=== PATIENT | female | born 1970 | race Caucasian/White ===

== ENCOUNTER → 2020-01-30 13:25 | Outpatient (BNVA) | payer BC, SELFPAY | PROVIDERS: Visit Provider Orthopaedic Surgery | DX: M25.561 Pain in right knee (principal) | CPT/HCPCS: 73560; 73565 ==

== ENCOUNTER 2020-04-04 17:32 | Emergency (ER) | payer BC, SELFPAY ==
[2020-04-04] VITALS (7 sets, daily range): BP systolic 95–140; BP diastolic 69–100; PULSE 86–113; RESP 16–18; TEMP 36.7; O2SAT 96–99; BMI 32.1
--- NOTE | 2020-04-04 19:53 | W.ED.ABDPA2 ---
Documented by User: PEPE Escoto 04/05/20 03:02 HPI - Abdominal Pain General: Chief Complaint: Abdominal Pain Stated Complaint: LUQ PAIN, HX OF PANCREATITIS Time Seen by Provider: 04/04/20 19:48 History of Present Illness: HPI narrative: Patient is a 49-year-old female comes to the ED with abdominal pain and nausea. Symptoms started last night. Past medical history of pancreatitis. Patient says that she has not been eating too healthy for the past week and thinks that started her symptoms. She rates the abdominal pain a 7 out of 10 currently and its located in the periumbilical region of the abdomen and it radiates to her back. Denies fever, chills, chest pain, shortness of breath, emesis, diarrhea, constipation, dysuria or hematuria. Associated Symptoms: Reports nausea; Denies chills, constipation, diarrhea, dysuria, fever(s), hematochezia, hematuria and vomiting Related Data: Date of Last Menstrual Period: 04/04/20 Review of Systems Const: Denies: fever(s), chills or fatigue Eyes: Denies: change in vision or eye discomfort ENMT: Denies: throat pain, odynophagia, nasal discharge or nasal congestion Card: Denies: chest pain, palpitations, edema, swelling of feet/ankles, dyspnea on exertion or orthopnea Resp: Denies: dyspnea, productive cough or non-productive cough GI: Reports: abdominal pain and nausea; Denies: vomiting, diarrhea, constipation or hematochezia : Denies: flank pain, dysuria or hematuria Musc: Denies: neck pain, back pain or extremity swelling Skin/Breast: Denies: rash or new lesions Neuro: Denies: headache(s), numbness in extremities or weakness in extremities PFS ED PFSH: Social History Smoking and tobacco status: never smoked Alcohol intake: never Female Reproductive History: Date of last menstrual period: 04/04/20 Physical Exam Const: COMMON NORMALS: no acute distress, patient oriented x3 and alert GENERAL APPEARANCE: cooperative and comfortable HENMT: COMMON NORMALS: normocephalic HEAD & SCALP: normocephalic MOUTH: Normal oral and palatal mucosa present THROAT: posterior oropharynx normal and uvula midline Eye: COMMON NORMALS: Equal, round and reactive pupils present PUPIL: Yes Equal, round and reactive pupils present Neck/C-Spine: COMMON NORMALS: supple GENERAL: Yes normal visual inspection Resp: COMMON NORMALS: normal respiratory effort, No retractions, No use of accessory muscles and clear to auscultation bilaterally AUSCULTATION: clear to auscultation bilaterally Cardio: COMMON NORMALS: regular rate, regular rhythm, S1 normal heart sound present, S2 normal heart sound present, No gallops present (Cardio), No clicks present (Cardio), No murmurs present (Cardio) and Peripheral pulses 2+ throughout RATE: regular rate RHYTHM: regular rhythm HEART SOUNDS: S1 normal heart sound present and S2 normal heart sound present PERIPHERAL PULSES: Peripheral pulses 2+ throughout GI: COMMON NORMALS: Normal to inspection, nondistended, normoactive bowel sounds present, Soft to palpation and no masses PALPATION: Yes Soft to palpation and Yes Tenderness to palpation present (GI) Details: other (Superior region periumbilical tenderness) : COMMON NORMALS: Yes no CVA tenderness BLADDER/KIDNEY EXAM: Yes no CVA tenderness Back/Pelvis: COMMON NORMALS: no CVA tenderness Extremity: COMMON NORMALS: normal to inspection Neuro: COMMON NORMALS: patient oriented x3 SENSORIUM/ORIENTATION: Yes alert GAIT: Yes Normal gait present Skin: GENERAL SKIN EXAM: dry skin Course Reevaluation(s): Reevaluation #1: Patient was given IV fluids, morphine and Zofran and her symptoms greatly improved. Her pain and nausea is now well managed. Patient would like to be discharged home. Vital Signs: Vital signs: Vital Signs Temperature 98.0 F 04/04/20 17:46 Pulse Rate 86 04/04/20 22:38 Respiratory Rate 17 04/04/20 22:38 Blood Pressure 121/77 04/04/20 22:38 Pulse Oximetry 97 04/04/20 22:38 MDM - Abdominal Pain MDM Narrative: Medical decision making narrative: Patient is a 49-year-old female comes to the ED with abdominal pain and nausea. Patient has a past medical history of pancreatitis. Abdominal pain is in the periumbilical region and then radiates to the back. CBC and CMP were unremarkable. Lipase 180. CT of the abdomen shows acute pancreatitis. Patient was given IV fluids, morphine and Zofran and her symptoms were well controlled. Patient was diagnosed with pancreatitis and was discharged with prescription for [place] for pain and Zofran for the nausea. She was instructed on having a clear liquid diet only for the next 48+ hours then to increase as tolerated. Follow-up with PCP in the next 7 to 10 days for reevaluation. Return to ED precautions given. Patient understood and agreed with plan. Lab Data: Attestation: I reviewed the patient's lab results. Labs: Lab Results 04/04/20 04/04/20 04/04/20 Range/Units 20:20 20:20 20:20 WBC 9.6 (4.0-10.0) 10^3/ uL RBC 4.32 (4.1-5.3) 10^6/u L Hgb 14.3 (11.5-15.3) g/dL Hct 43.0 (37.0-47.0) % MCV 99.5 H (81-99) fL MCH 33.1 (28.0-34.0) pg MCHC 33.3 (30.0-36.0) g/dL RDW 13.5 (12.1-15.1) % Plt Count 269 (130-400) 10^3/c mm MPV 10.6 H (7.4-10.4) fL Neut % (Auto) 83.4 % Lymph % (Auto) 10.7 % [place] % (Auto) 4.4 % Eos % (Auto) 0.5 % Baso % (Auto) 0.6 % Neut # (Auto) 8.02 H (1.8-7.7) 10^3/u L Lymph # (Auto) 1.0 (0.8-4.8) 10^3/u L [place] # (Auto) 0.4 (0.2-0.9) 10^3/u L Eos # (Auto) 0.1 (0.0-0.8) 10^3/u L Baso # (Auto) 0.1 (0.0-0.1) 10^3/u L Nucleated RBC % (a uto) 0 % Nucleated RBCs # 0.0 /100WBC Sodium 134 L (136-145) mmol/L Potassium 3.9 (3.5-5.1) mmol/L Chloride 104 (98-107) mmol/L Carbon Dioxide 13 L (22-29) mmol/L Anion Gap 20.9 H (5-19) BUN 14 (6-20) mg/dL Creatinine 0.9 (0.5-0.9) mg/dL GFR Calculation 66.8 L (90-130) mL/min Glucose 135 H (65-115) mg/dL Calculated Osmolal ity 281 L (285-295) mOsm/k g Calcium 9.1 (8.5-10.5) mg/dL Total Bilirubin 0.3 (0.15-1.2) mg/dL AST 54 H (0-32) U/L ALT 25 (0-33) U/L Alkaline Phosphata se 100 (35-105) IU/L Total Protein 8.6 (6.6-8.7) g/dL Albumin 4.2 (3.5-5.2) g/dL Globulin 4.4 (1.3-4.6) g/dL Lipase 186 H (13-60) U/L HCG, Qual Negative (Negative) Urine Color (Yellow) Urine Appearance (CLEAR) Urine pH (5-7) Ur Specific Gravit y (1.005-1.030) Urine Protein (Negative) Urine Glucose (UA) (Normal) Urine Ketones (Negative) Urine Blood (Negative) Urine Nitrate (Negative) Urine Bilirubin (Negative) Urine Urobilinogen (Negative) mg/dL Ur Leukocyte Akila ase (Negative) Urine RBC (0-2) /hpf Urine WBC (0-5) /hpf Ur Squamous Epith Cells (0-5) /hpf Amorphous Sediment Urine Bacteria (NONE) /hpf 04/04/20 Range/Units 21:35 WBC (4.0-10.0) 10^3/ uL RBC (4.1-5.3) 10^6/u L Hgb (11.5-15.3) g/dL Hct (37.0-47.0) % MCV (81-99) fL MCH (28.0-34.0) pg MCHC (30.0-36.0) g/dL RDW (12.1-15.1) % Plt Count (130-400) 10^3/c mm MPV (7.4-10.4) fL Neut % (Auto) % Lymph % (Auto) % [place] % (Auto) % Eos % (Auto) % Baso % (Auto) % Neut # (Auto) (1.8-7.7) 10^3/u L Lymph # (Auto) (0.8-4.8) 10^3/u L [place] # (Auto) (0.2-0.9) 10^3/u L Eos # (Auto) (0.0-0.8) 10^3/u L Baso # (Auto) (0.0-0.1) 10^3/u L Nucleated RBC % (a uto) % Nucleated RBCs # /100WBC Sodium (136-145) mmol/L Potassium (3.5-5.1) mmol/L Chloride (98-107) mmol/L Carbon Dioxide (22-29) mmol/L Anion Gap (5-19) BUN (6-20) mg/dL Creatinine (0.5-0.9) mg/dL GFR Calculation (90-130) mL/min Glucose (65-115) mg/dL Calculated Osmolal ity (285-295) mOsm/k g Calcium (8.5-10.5) mg/dL Total Bilirubin (0.15-1.2) mg/dL AST (0-32) U/L ALT (0-33) U/L Alkaline Phosphata se (35-105) IU/L Total Protein (6.6-8.7) g/dL Albumin (3.5-5.2) g/dL Globulin (1.3-4.6) g/dL Lipase (13-60) U/L HCG, Qual (Negative) Urine Color Yellow (Yellow) Urine Appearance Clear (CLEAR) Urine pH 7 (5-7) Ur Specific Gravit y 1.000 L (1.005-1.030) Urine Protein 1+ H (Negative) Urine Glucose (UA) Norm (Normal) Urine Ketones Negative (Negative) Urine Blood 2+ H (Negative) Urine Nitrate Negative (Negative) Urine Bilirubin Neg (Negative) Urine Urobilinogen Norm (Negative) mg/dL Ur Leukocyte Akila ase Negative (Negative) Urine RBC 0-4 H (0-2) /hpf Urine WBC 5-10 H (0-5) /hpf Ur Squamous Epith Cells 10-15 H (0-5) /hpf Amorphous Sediment Not Reportable Urine Bacteria Trace (NONE) /hpf Imaging Data ^: CT Abd/Pel: Attestation: I personally reviewed and interpreted this imaging study as follows: Radiologist's impression: [address] [place] [address] CT Scan Report Signed Patient: Pham Casey Unit #: [id number] : 1970 Age/Sex: 49 / F ADM Date: 04/04/20 Loc: ER Room/Bed: Attending Dr: Ordering Provider/Ordering MD: Krystian Valencia Date of Service: 04/04/20 Procedure(s): CT abdomen pelvis w con* [id number] Accession Number(s): [id number] Report Number: [id number] PROCEDURE INFORMATION: Exam: CT Abdomen And Pelvis With Contrast Exam date and time: 04/04/2020 8:10 PM Age: 49 years old Clinical indication: Abdominal pain; Prior surgery; Surgery type: Gb; Patient HX: Epigastric pain. History of pancreatitis. TECHNIQUE: Imaging protocol: Computed tomography of the abdomen and pelvis with contrast. Radiation optimization: All CT scans at this facility use at least one of these dose optimization techniques: automated exposure control; mA and/or kV adjustment per patient size (includes targeted exams where dose is matched to clinical indication); or iterative reconstruction. Contrast material: OMNI 300; Contrast volume: 95 ml; Contrast route: INTRAVENOUS (IV); COMPARISON: CT abdomen pelvis w con* [id number] 11/19/2017 10:57 PM RADIATION DOSE METRICS: Total DLP (mGy-cm): 1075.93 FINDINGS: Liver: Normal. No mass. Gallbladder and bile ducts: Cholecystectomy. No ductal dilation. Pancreas: Fat stranding around the pancreatic tail. Small focal area of mildly decreased enhancement in the pancreatic tail parenchyma. No loculated peripancreatic fluid collection. No pancreatic ductal dilation. Spleen: Normal. No splenomegaly. Adrenal glands: Normal. No mass. Kidneys and ureters: Normal. No hydronephrosis. Stomach and bowel: The scattered diverticulosis coli. No focal bowel wall inflammation. No evidence of bowel obstruction or perforation. Appendix: No evidence of appendicitis. Intraperitoneal space: Unremarkable. No free air. No significant fluid collection. Vasculature: Unremarkable. No abdominal aortic aneurysm. Lymph nodes: Unremarkable. No enlarged lymph nodes. Urinary bladder: Unremarkable as visualized. Reproductive: Unremarkable as visualized. Bones/joints: Unremarkable. No acute fracture. Soft tissues: Unremarkable. CT/CT abdomen pelvis w con* [id number] IMPRESSION: Acute pancreatitis. Radiation Dose CTDIVOL = (mGy): DLP = 1075.93 (mGy-cm) Dictated By: Fernando Roberts Signed By: Fernando Roberts Signed Date/Time: 04/04/202050 DD/ 48 Discharge Plan Discharge Patient Disposition: Home Clinical Impression: Acute pancreatitis Qualifiers: Pancreatitis type: unspecified pancreatitis type Acute pancreatitis complication: no infection or necrosis Qualified Code(s): K85.90 - Acute pancreatitis without necrosis or infection, unspecified Condition: Stable Prescriptions: New ondansetron 4 mg tablet,disintegrating 4 mg PO Q8H Qty: 30 RF: 0 No Action hydroxyzine HCl 25 mg tablet 25 mg PO QID PRNRF: 0 gemfibrozil 600 mg tablet 600 mg PO BID RF: 0 amlodipine 10 mg tablet 10 mg PO DAILY RF: 0 allopurinol 100 mg tablet 100 mg PO DAILY RF: 0 levothyroxine 50 mcg capsule 50 mcg PO DAILY RF: 0 diclofenac sodium 75 mg tablet,delayed release (DR/EC) 75 mg PO BID PRNRF: 0 Discharge Orders: Discharge ED (Routine); Ordered 04/04/20 Ordered By: Krystian Valencia Discharge Diet: Advance as tolerated and Clear Liquid Discharge Activity: Increase activity as tolerated Patient Instructions: Pancreatitis (ED), Opioid Safety Activity Restrictions/Additional Instructions: Follow-up with medical provider as directed in 7 to 10 days for reevaluation. Only clear liquid diet for the next 48+ hours and then slowly advance diet as tolerated. Take medications as prescribed. Return to the ER or your medical provider if condition worsens. Please read and understand discharge instructions. If any questions, please ask. Coding Level of Care Code ED Promotions Producer for Chg Fwd Exam Comprehensive Documented by User: Rolando Jasso DO 04/05/20 03:53 HPI - Abdominal Pain General: Chief Complaint: Abdominal Pain Stated Complaint: LUQ PAIN, HX OF PANCREATITIS Time Seen by Provider: 04/04/20 19:48 PFSH ED PFSH: Social History Smoking and tobacco status: never smoked Alcohol intake: never Course Vital Signs: Vital signs: Vital Signs Temperature 98.0 F 04/04/20 17:46 Pulse Rate 86 04/04/20 22:38 Respiratory Rate 17 04/04/20 22:38 Blood Pressure 121/77 04/04/20 22:38 Pulse Oximetry 97 04/04/20 22:38 MDM - Abdominal Pain Lab Data: Labs: Lab Results 04/04/20 04/04/20 04/04/20 Range/Units 20:20 20:20 20:20 WBC 9.6 (4.0-10.0) 10^3/ uL RBC 4.32 (4.1-5.3) 10^6/u L Hgb 14.3 (11.5-15.3) g/dL Hct 43.0 (37.0-47.0) % MCV 99.5 H (81-99) fL MCH 33.1 (28.0-34.0) pg MCHC 33.3 (30.0-36.0) g/dL RDW 13.5 (12.1-15.1) % Plt Count 269 (130-400) 10^3/c mm MPV 10.6 H (7.4-10.4) fL Neut % (Auto) 83.4 % Lymph % (Auto) 10.7 % [place] % (Auto) 4.4 % Eos % (Auto) 0.5 % Baso % (Auto) 0.6 % Neut # (Auto) 8.02 H (1.8-7.7) 10^3/u L Lymph # (Auto) 1.0 (0.8-4.8) 10^3/u L [place] # (Auto) 0.4 (0.2-0.9) 10^3/u L Eos # (Auto) 0.1 (0.0-0.8) 10^3/u L Baso # (Auto) 0.1 (0.0-0.1) 10^3/u L Nucleated RBC % (a uto) 0 % Nucleated RBCs # 0.0 /100WBC Sodium 134 L (136-145) mmol/L Potassium 3.9 (3.5-5.1) mmol/L Chloride 104 (98-107) mmol/L Carbon Dioxide 13 L (22-29) mmol/L Anion Gap 20.9 H (5-19) BUN 14 (6-20) mg/dL Creatinine 0.9 (0.5-0.9) mg/dL GFR Calculation 66.8 L (90-130) mL/min Glucose 135 H (65-115) mg/dL Calculated Osmolal ity 281 L (285-295) mOsm/k g Calcium 9.1 (8.5-10.5) mg/dL Total Bilirubin 0.3 (0.15-1.2) mg/dL AST 54 H (0-32) U/L ALT 25 (0-33) U/L Alkaline Phosphata se 100 (35-105) IU/L Total Protein 8.6 (6.6-8.7) g/dL Albumin 4.2 (3.5-5.2) g/dL Globulin 4.4 (1.3-4.6) g/dL Lipase 186 H (13-60) U/L HCG, Qual Negative (Negative) Urine Color (Yellow) Urine Appearance (CLEAR) Urine pH (5-7) Ur Specific Gravit y (1.005-1.030) Urine Protein (Negative) Urine Glucose (UA) (Normal) Urine Ketones (Negative) Urine Blood (Negative) Urine Nitrate (Negative) Urine Bilirubin (Negative) Urine Urobilinogen (Negative) mg/dL Ur Leukocyte Akila ase (Negative) Urine RBC (0-2) /hpf Urine WBC (0-5) /hpf Ur Squamous Epith Cells (0-5) /hpf Amorphous Sediment Urine Bacteria (NONE) /hpf 04/04/20 Range/Units 21:35 WBC (4.0-10.0) 10^3/ uL RBC (4.1-5.3) 10^6/u L Hgb (11.5-15.3) g/dL Hct (37.0-47.0) % MCV (81-99) fL MCH (28.0-34.0) pg MCHC (30.0-36.0) g/dL RDW (12.1-15.1) % Plt Count (130-400) 10^3/c mm MPV (7.4-10.4) fL Neut % (Auto) % Lymph % (Auto) % [place] % (Auto) % Eos % (Auto) % Baso % (Auto) % Neut # (Auto) (1.8-7.7) 10^3/u L Lymph # (Auto) (0.8-4.8) 10^3/u L [place] # (Auto) (0.2-0.9) 10^3/u L Eos # (Auto) (0.0-0.8) 10^3/u L Baso # (Auto) (0.0-0.1) 10^3/u L Nucleated RBC % (a uto) % Nucleated RBCs # /100WBC Sodium (136-145) mmol/L Potassium (3.5-5.1) mmol/L Chloride (98-107) mmol/L Carbon Dioxide (22-29) mmol/L Anion Gap (5-19) BUN (6-20) mg/dL Creatinine (0.5-0.9) mg/dL GFR Calculation (90-130) mL/min Glucose (65-115) mg/dL Calculated Osmolal ity (285-295) mOsm/k g Calcium (8.5-10.5) mg/dL Total Bilirubin (0.15-1.2) mg/dL AST (0-32) U/L ALT (0-33) U/L Alkaline Phosphata se (35-105) IU/L Total Protein (6.6-8.7) g/dL Albumin (3.5-5.2) g/dL Globulin (1.3-4.6) g/dL Lipase (13-60) U/L HCG, Qual (Negative) Urine Color Yellow (Yellow) Urine Appearance Clear (CLEAR) Urine pH 7 (5-7) Ur Specific Gravit y 1.000 L (1.005-1.030) Urine Protein 1+ H (Negative) Urine Glucose (UA) Norm (Normal) Urine Ketones Negative (Negative) Urine Blood 2+ H (Negative) Urine Nitrate Negative (Negative) Urine Bilirubin Neg (Negative) Urine Urobilinogen Norm (Negative) mg/dL Ur Leukocyte Akila ase Negative (Negative) Urine RBC 0-4 H (0-2) /hpf Urine WBC 5-10 H (0-5) /hpf Ur Squamous Epith Cells 10-15 H (0-5) /hpf Amorphous Sediment Not Reportable Urine Bacteria Trace (NONE) /hpf Discharge Plan Discharge Patient Disposition: Home Clinical Impression: Acute pancreatitis Qualifiers: Pancreatitis type: unspecified pancreatitis type Acute pancreatitis complication: no infection or necrosis Qualified Code(s): K85.90 - Acute pancreatitis without necrosis or infection, unspecified Condition: Stable Prescriptions: New ondansetron 4 mg tablet,disintegrating 4 mg PO Q8H Qty: 30 RF: 0 No Action hydroxyzine HCl 25 mg tablet 25 mg PO QID PRNRF: 0 gemfibrozil 600 mg tablet 600 mg PO BID RF: 0 amlodipine 10 mg tablet 10 mg PO DAILY RF: 0 allopurinol 100 mg tablet 100 mg PO DAILY RF: 0 levothyroxine 50 mcg capsule 50 mcg PO DAILY RF: 0 diclofenac sodium 75 mg tablet,delayed release (DR/EC) 75 mg PO BID PRNRF: 0 Discharge Orders: Discharge ED (Routine); Ordered 04/04/20 Ordered By: Krystian Valencia Discharge Diet: Advance as tolerated and Clear Liquid Discharge Activity: Increase activity as tolerated Patient Instructions: Pancreatitis (ED), Opioid Safety Activity Restrictions/Additional Instructions: Follow-up with medical provider as directed in 7 to 10 days for reevaluation. Only clear liquid diet for the next 48+ hours and then slowly advance diet as tolerated. Take medications as prescribed. Return to the ER or your medical provider if condition worsens. Please read and understand discharge instructions. If any questions, please ask. Coding Level of Care Code ED Promotions Producer for Dara Fwd Exam Comprehensive
--- NOTE | 2020-04-04 20:04 | CTR_ITS ---
PROCEDURE INFORMATION: Exam: CT Abdomen And Pelvis With Contrast Exam date and time: 04/04/2020 8:10 PM Age: 49 years old Clinical indication: Abdominal pain; Prior surgery; Surgery type: Gb; Patient HX: Epigastric pain. History of pancreatitis. TECHNIQUE: Imaging protocol: Computed tomography of the abdomen and pelvis with contrast. Radiation optimization: All CT scans at this facility use at least one of these dose optimization techniques: automated exposure control; mA and/or kV adjustment per patient size (includes targeted exams where dose is matched to clinical indication); or iterative reconstruction. Contrast material: OMNI 300; Contrast volume: 95 ml; Contrast route: INTRAVENOUS (IV); COMPARISON: CT abdomen pelvis w con* [id number] 11/19/2017 10:57 PM RADIATION DOSE METRICS: Total DLP (mGy-cm): 1075.93 FINDINGS: Liver: Normal. No mass. Gallbladder and bile ducts: Cholecystectomy. No ductal dilation. Pancreas: Fat stranding around the pancreatic tail. Small focal area of mildly decreased enhancement in the pancreatic tail parenchyma. No loculated peripancreatic fluid collection. No pancreatic ductal dilation. Spleen: Normal. No splenomegaly. Adrenal glands: Normal. No mass. Kidneys and ureters: Normal. No hydronephrosis. Stomach and bowel: The scattered diverticulosis coli. No focal bowel wall inflammation. No evidence of bowel obstruction or perforation. Appendix: No evidence of appendicitis. Intraperitoneal space: Unremarkable. No free air. No significant fluid collection. Vasculature: Unremarkable. No abdominal aortic aneurysm. Lymph nodes: Unremarkable. No enlarged lymph nodes. Urinary bladder: Unremarkable as visualized. Reproductive: Unremarkable as visualized. Bones/joints: Unremarkable. No acute fracture. Soft tissues: Unremarkable. CT/CT abdomen pelvis w con* [id number] IMPRESSION: Acute pancreatitis. Radiation Dose CTDIVOL = (mGy): DLP = 1075.93 (mGy-cm)
[2020-04-04] MEDS: sodium chloride 0.9% 1,000 ML 999 ML IV (20:21)
[2020-04-04] MEDS: morphine 4 mg/mL SDV 1 mL IVP ×2 (20:21→22:36)
[2020-04-04] MEDS: ondansetron 2 mg/ML SDV 2 mL 4 MG IVP (20:21)
[2020-04-04 20:28] LABS: Basophils # 0.1 10^3/uL (0.0-0.1); Basophils % 0.6 %; Eosinophils # 0.1 10^3/uL (0.0-0.8); Eosinophils % 0.5 %; Hemoglobin 14.3 g/dL (11.5-15.3); Lymphocytes % 10.7 %; Mean Corpuscular HGB Conc 33.3 g/dL (30.0-36.0); Mean Corpuscular Hemoglobin 33.1 pg (28.0-34.0); Mean Corpuscular Volume 99.5 fL (81-99); Mean Platelet Volume 10.6 fL (7.4-10.4); Monocytes # 0.4 10^3/uL (0.2-0.9); Monocytes % 4.4 %; Neutrophils # 8.02 10^3/uL (1.8-7.7); Neutrophils % 83.4 %; Nucleated Red Blood Cells % 0 %; Platelet Count 269 10^3/cmm (130-400); Red Blood Count 4.32 10^6/uL (4.1-5.3); Red Cell Distribution Width 13.5 % (12.1-15.1); White Blood Count 9.6 10^3/uL (4.0-10.0)
[2020-04-04] MEDS: iohexol 300 mg/mL 100 mL Btl IV (20:30)
[2020-04-04 20:52] LABS: Blood Urea Nitrogen 14 mg/dL (6-20); HCG, Serum Qual Negative (Negative); Total Bilirubin 0.3 mg/dL (0.15-1.2)
[2020-04-04 21:54] LABS: Bilirubin Urine Neg (Negative); Blood Urine 2+ (Negative); Glucose Urine UA Norm (Normal); Ketones Urine Negative (Negative); Leukocyte Esterase Urine Negative (Negative); Nitrate Urine Negative (Negative); Protein Urine 1+ (Negative); Urine Appearance Clear (CLEAR); Urine Color Yellow (Yellow); Urobilinogen Urine Norm (Negative); pH Urine 7 (5-7)
[2020-04-04 22:01] LABS: RBC Urine 0-4 /hpf (0-2)
[2020-04-04 22:02] LABS: Add Urine Culture? Yes; Bacteria Urine TRACE /hpf
[2020-04-04 22:28] LABS: Albumin Level 4.2 g/dL (3.5-5.2)
[2020-04-04 22:59] LABS: Alanine Aminotransferase 25 U/L (0-33); Alkaline Phosphatase 100 IU/L (35-105); Aspartate Amino Transferase 54 U/L (0-32); Calcium 9.1 mg/dL (8.5-10.5); Carbon Dioxide 13 mmol/L (22-29); Chloride 104 mmol/L (98-107); Globulin 4.4 g/dL (1.3-4.6); Glomerular Filtration Rate 66.8 mL/min (90-130); Glucose 135 mg/dL (65-115); Lipase 186 U/L (13-60); Osmolality Calculated 281 mOsm/kg (285-295); Sodium 134 mmol/L (136-145); Total Protein 8.6 g/dL (6.6-8.7)
[2020-04-04 23:05] LABS: Anion Gap 20.9 (5-19); Potassium 3.9 mmol/L (3.5-5.1)
[2020-04-04] MEDS: HYDROcodone-acetaminophen 7.5-325 mg Tablet 2 TAB PO (23:43)
[2020-04-04] MEDS: ondansetron 2 mg/ML SDV 2 mL 4 MG IM (23:52)
== END 2020-04-05 00:06 | disposition home or self-care (01) ==
PROVIDERS: Emergency Provider Physician Assistant
DX: K85.90 Acute pancreatitis without necrosis or infection, unspecified (principal)
CPT/HCPCS: 74177; 80053; 81001; 83690; 84703; 85025; 87086; 96361; 96372; 96374; 96375; 96376; 99284; J2270; J2405; J7030; Q9967

== ENCOUNTER 2022-09-06 00:22 | Emergency (ER) | payer BC, SELFPAY ==
[2022-09-06 00:27] VITALS: BP 187/101; PULSE 60; RESP 14; TEMP 36.4; O2SAT 96; BMI 32.8
--- NOTE | 2022-09-06 00:58 | XRR_ITS ---
PROCEDURE INFORMATION: Exam: XR Left Hand Exam date and time: 09/06/2022 1:11 AM Age: 51 years old Clinical indication: Injury or trauma; Blunt trauma (contusions or hematomas); Hand; Left; Patient HX: Patient sustained a fall yesterday. Now has contusion to scaphoid and proximal thumb with swelling. ; Additional info: Fall injury TECHNIQUE: Imaging protocol: Radiologic exam of the left hand. Views: 3 or more views. COMPARISON: No relevant prior studies available. FINDINGS: Bones/joints: Normal. Soft tissues: Mild soft tissue swelling. XR/XR hand LT min 3V* [id number] IMPRESSION: Mild soft tissue swelling.
--- NOTE | 2022-09-06 01:03 | CTR_ITS ---
PROCEDURE INFORMATION: Exam: CT Head Without Contrast Exam date and time: 09/06/2022 1:54 AM Age: 51 years old Clinical indication: Pain; Headache; Patient HX: HARDY with nausea and hypertension; Additional info: Headache, nausea, uncontrolled HTN TECHNIQUE: Imaging protocol: Computed tomography of the head without contrast. Radiation optimization: All CT scans at this facility use at least one of these dose optimization techniques: automated exposure control; mA and/or kV adjustment per patient size (includes targeted exams where dose is matched to clinical indication); or iterative reconstruction. REPORTING DATA: Count of CT and Cardiac NM exams in prior 12 months: This patient has received 0 known CTs and 0 known cardiac nuclear medicine studies in the 12 months prior to the current study. COMPARISON: No relevant prior studies available. RADIATION DOSE METRICS: Total DLP (mGy-cm): 1051.94 FINDINGS: Brain: Normal. No hemorrhage. Unremarkable white matter. No mass effect. Cerebral ventricles: No ventriculomegaly. Paranasal sinuses: Visualized sinuses are unremarkable. No fluid levels. Mastoid air cells: Visualized mastoid air cells are well aerated. Bones/joints: Unremarkable. No acute fracture. Soft tissues: Unremarkable. CT/CT head wo con* [id number] IMPRESSION: No acute intracranial abnormality.
--- NOTE | 2022-09-06 01:04 | W.ED.HA ---
HPI - Headache General: Chief Complaint: Headache Stated Complaint: Headache\Left Hand Injury\BD High Time Seen by Provider: 09/06/22 00:57 History of Present Illness: 51-year-old female comes in today with complaints of headache, high blood pressure, and left hand injury. Patient reports severe headache all day. Patient reports being without her blood pressure medication for over 2 weeks. Patient states last night she had tripped and fell while dancing at the bar injuring her left hand. Patient has significant bruising and swelling to the left hand along the thumb. Patient reports that she has been unable to follow-up with her primary care to get refills on her lisinopril and amlodipine. Patient appears nontoxic. Patient appears in moderate pain. Associated symptoms: Reports nausea; Deny chest pain, fever(s) or rash Review of Systems General: Reports: 10 or more systems reviewed and unremarkable except in HPI and below Const: Denies: fever(s) Card: Denies: chest pain Resp: Denies: dyspnea GI: Reports: nausea Musc: Denies: neck pain or back pain Skin/Breast: Denies: rash Neuro: Reports: headache(s) PFSH ED PFSH: Social History Smoking and tobacco status: never smoked Alcohol intake: never Physical Exam Const: COMMON NORMALS: alert HENMT: COMMON NORMALS: normocephalic HEAD & SCALP: normocephalic MOUTH: Normal oral and palatal mucosa present Neck/C-Spine: COMMON NORMALS: full ROM Resp: COMMON NORMALS: normal respiratory effort and clear to auscultation bilaterally AUSCULTATION: clear to auscultation bilaterally Cardio: COMMON NORMALS: regular rate and regular rhythm RATE: regular rate RHYTHM: regular rhythm GI: COMMON NORMALS: Soft to palpation and non-tender PALPATION: Yes Soft to palpation Back/Pelvis: COMMON NORMALS: thoracic and lumbar spine normal to inspection Extremity: COMMON NORMALS: full ROM LEFT UPPER EXTREMITY: Yes hand & digits (Dorsal bruising and swelling along the thumb) Left hand and digits: Yes inspection, Yes palpation and Yes ROM (Decreased range of motion of the thumb) Neuro: SENSORIUM/ORIENTATION: Yes alert Course Vital Signs: Vital signs: Vital Signs Temperature 97.5 F L 09/06/22 00:27 Pulse Rate 61 09/06/22 02:21 Respiratory Rate 18 09/06/22 02:21 Blood Pressure 146/110 09/06/22 02:21 Pulse Oximetry 99 09/06/22 02:21 Oxygen Delivery Me thod Room Air 09/06/22 02:21 MDM - Headache Medical Decision Making Patient comes in today with complaints of severe headache, nausea, and injury to the left hand. On exam patient appears nontoxic. Patient appears in moderate pain. Patient has swelling and bruising to the left dorsal hand with decreased range of motion of the thumb. Normal range of motion of the neck. No pain along the spine. Respirations are even lungs are clear to auscultation. No focal neural deficits noted. Blood pressure was elevated at 187/101. Differential diagnosis includes but not limited to hypertensive emergency, intracranial bleeding, fracture of the hand, uncontrolled hypertension, migraine headache. Patient was given 10 mg of Reglan and 10 mg of hydralazine. Blood pressure was controlled and headache improved but patient felt restless most likely due to the Reglan. Patient was given 12-1/2 mg of diphenhydramine along with 15 mg of ketorolac. Patient had resolution of headache and felt improved and was discharged home with a refill prescription for her amlodipine. Patient is to follow-up for further refills. Patient reported understanding and agreed to plan. Lab Data 09/06/22 01:18 09/06/22 01:[address] 09/06/22 01:03 IMPRESSION: No acute intracranial abnormality. Laboratory Results WBC 8.9 10^3/uL (4.0-10.0) 09/06/22 01:18 RBC 4.07 10^6/uL (4.1-5.3) L 09/06/22 01:18 Hgb 11.2 g/dL (11.5-15.3) L 09/06/22 01:18 Hct 36.3 % (37.0-47.0) L 09/06/22 01:18 MCV 89.2 fl (81-99) 09/06/22 01:18 MCH 27.5 pg (28.0-34.0) L 09/06/22 01:18 MCHC 30.9 g/dL (30.0-36.0) 09/06/22 01:18 RDW 15.9 % (12.1-15.1) H 09/06/22 01:18 Plt Count 321 10^3/cmm (130-400) 09/06/22 01:18 MPV 10.8 fL (7.4-10.4) H 09/06/22 01:18 Neut % (Auto) 70.4 % 09/06/22 01:18 Lymph % (Auto) 20.0 % 09/06/22 01:18 [place] % (Auto) 6.5 % 09/06/22 01:18 Eos % (Auto) 2.0 % 09/06/22 01:18 Baso % (Auto) 0.7 % 09/06/22 01:18 Neut # (Auto) 6.25 10^3/uL (1.8-7.7) 09/06/22 01:18 Lymph # (Auto) 1.8 10^3/uL (0.8-4.8) 09/06/22 01:18 [place] # (Auto) 0.6 10^3/uL (0.2-0.9) 09/06/22 01:18 Eos # (Auto) 0.2 10^3/uL (0.0-0.8) 09/06/22 01:18 Baso # (Auto) 0.1 10^3/uL (0.0-0.1) 09/06/22 01:18 Nucleated RBC % (auto) 0 % 09/06/22 01:18 Nucleated RBCs # 0.0 /100WBC 09/06/22 01:18 Sodium 140 mmol/L (136-145) 09/06/22 01:18 Potassium 3.6 mmol/L (3.5-5.1) 09/06/22 01:18 Chloride 106 mmol/L (98-107) 09/06/22 01:18 Carbon Dioxide 21 mmol/L (22-29) L 09/06/22 01:18 Anion Gap 16.6 (5-19) 09/06/22 01:18 BUN 10 mg/dL (6-20) 09/06/22 01:18 Creatinine 0.6 mg/dL (0.5-0.9) 09/06/22 01:18 GFR Calculation 105.8 mL/min (90-130) 09/06/22 01:18 Glucose 134 mg/dL (65-115) H 09/06/22 01:18 Calculated Osmolality 291 mOsm/kg (285-295) 09/06/22 01:18 Calcium 9.3 mg/dL (8.5-10.5) 09/06/22 01:18 Total Bilirubin 0.4 mg/dL (0.15-1.2) 09/06/22 01:18 AST 22 U/L (0-32) 09/06/22 01:18 ALT 17 U/L (0-33) 09/06/22 01:18 Alkaline Phosphatase 70 U/L (35-105) 09/06/22 01:18 NT-Pro-B Natriuret Pep 213 pg/mL (0-125) H 09/06/22 01:18 Total Protein 7.3 g/dL (6.6-8.7) 09/06/22 01:18 Albumin 4.0 g/dL (3.5-5.2) 09/06/22 01:18 Globulin 3.3 g/dL (1.3-4.6) 09/06/22 01:18 EKG Data EKG 1: EKG interpretation date: 09/06/22 EKG interpretation time: : Prior EKG tracings: not available for review Interpretation: EKG shows a sinus rhythm with a regular rate at [address] elevation is noted. No ectopy is noted. No prior exam was available for comparison. Computer generated interpretation: Sinus rhythm, low QRS voltage in precordial leads, borderline EKG, unconfirmed report. Discharge Plan Discharge Patient Disposition: Home Clinical Impression: Hypertension Headache Qualifiers: Headache type: unspecified Headache chronicity pattern: acute headache Intractability: not intractable Qualified Code(s): R51.9 - Headache, unspecified Contusion of hand Qualifiers: Encounter type: initial encounter Laterality: left Qualified Code(s): S60.222A - Contusion of left hand, initial encounter Condition: Stable Prescriptions: Continued amlodipine 10 mg tablet 10 mg PO DAILY Qty: 30 0RF No Action hydroxyzine HCl 25 mg tablet 25 mg PO QID PRN gemfibrozil 600 mg tablet 600 mg PO BID allopurinol 100 mg tablet 100 mg PO DAILY levothyroxine 50 mcg capsule 50 mcg PO DAILY diclofenac sodium 75 mg tablet,delayed release (DR/EC) 75 mg PO BID PRN ondansetron 4 mg tablet,disintegrating 4 mg PO Q8H Qty: 30 0RF Discharge Orders: Discharge ED (Routine); Ordered 09/06/22 Ordered By: Morris Silva Discharge Diet: Usual diet Discharge Activity: Increase activity as tolerated Patient Instructions: Hypertension (ED), General Headache (ED) Activity Restrictions/Additional Instructions: Follow-up with primary care and get prescription medications refilled for hypertension. Use acetaminophen as needed for pain. Drink plenty of water and fluids of medications. Return to ER for new concerns. Stand Alone Forms: Work/School Release Coding Level of Care Code ED [employer] for [facility] [place]
--- NOTE | 2022-09-06 01:14 | ECG_ITS ---
[facility] Test Date: 2022-09-06 Pat Name: Pham Casey Department: Room: Gender: Female Project Developer: : 1970 Requested By: Morris Taylor Order Number: [id number] Leon MD: Man Lopez M.D. Measurements Intervals [place] Rate: 60 P: 57 TN: 179 QRS: -3 QRSD: 88 T: 38 QT: 423 QTc: 425 Interpretive Statements SINUS RHYTHM LOW QRS VOLTAGE IN PRECORDIAL LEADS [QRS DEFLECTION < 1.0 mV IN CHEST LEADS] No previous ECG available for comparison Electronically Signed On 09-06-2022 8:28:34 CDT by Man Lopez M.D. [id number]
[2022-09-06 01:24] LABS: Basophils # 0.1 10^3/uL (0.0-0.1); Basophils % 0.7 %; Eosinophils # 0.2 10^3/uL (0.0-0.8); Hematocrit 36.3 % (37.0-47.0); Hemoglobin 11.2 g/dL (11.5-15.3); Lymphocytes # 1.8 10^3/uL (0.8-4.8); Mean Corpuscular HGB Conc 30.9 g/dL (30.0-36.0); Mean Corpuscular Hemoglobin 27.5 pg (28.0-34.0); Mean Corpuscular Volume 89.2 fl (81-99); Mean Platelet Volume 10.8 fL (7.4-10.4); Monocytes # 0.6 10^3/uL (0.2-0.9); Monocytes % 6.5 %; Neutrophils # 6.25 10^3/uL (1.8-7.7); Neutrophils % 70.4 %; Nucleated Red Blood Cells % 0 %; Platelet Count 321 10^3/cmm (130-400); Red Blood Count 4.07 10^6/uL (4.1-5.3); Red Cell Distribution Width 15.9 % (12.1-15.1); White Blood Count 8.9 10^3/uL (4.0-10.0)
[2022-09-06] MEDS: metoclopramide 5 mg/mL SDV 2 mL 10 MG IVP (01:44)
[2022-09-06] MEDS: hyDRALAzine 20 mg/mL INJ 1 mL 10 MG IVP (01:44)
[2022-09-06 01:52] LABS: Alanine Aminotransferase 17 U/L (0-33); Alkaline Phosphatase 70 U/L (35-105); Anion Gap 16.6 (5-19); Aspartate Amino Transferase 22 U/L (0-32); Blood Urea Nitrogen 10 mg/dL (6-20); Calcium 9.3 mg/dL (8.5-10.5); Carbon Dioxide 21 mmol/L (22-29); Chloride 106 mmol/L (98-107); Globulin 3.3 g/dL (1.3-4.6); Glomerular Filtration Rate 105.8 mL/min (90-130); Glucose 134 mg/dL (65-115); NT Pro B Type Natriuretic Pept 213 pg/mL (0-125); Osmolality Calculated 291 mOsm/kg (285-295); Potassium 3.6 mmol/L (3.5-5.1); Sodium 140 mmol/L (136-145); Total Bilirubin 0.4 mg/dL (0.15-1.2); Total Protein 7.3 g/dL (6.6-8.7)
[2022-09-06] MEDS: ketorolac 30 mg/mL INJ 15 MG IVP (02:15)
[2022-09-06] MEDS: diphenhydrAMINE 50 mg/mL SDV 1mL 12.5 MG IVP (02:16)
[2022-09-06 02:21] VITALS: BP 146/110; PULSE 61; RESP 18; O2SAT 99
[2022-09-06 03:01] VITALS: BP 146/110; PULSE 81; RESP 18; O2SAT 98
== END 2022-09-06 03:09 | disposition home or self-care (01) ==
PROVIDERS: Emergency Provider Nurse Practitioner Family
DX: R51.9 Headache, unspecified (principal); I10 Essential (primary) hypertension; S60.222A Contusion of left hand, initial encounter; W01.0XXA Fall on same level from slipping, tripping and stumbling without subsequent striking against object, initial encounter
CPT/HCPCS: 36415; 70450; 73130; 80053; 83880; 85025; 93005; 96374; 96375; 99285; J0360; J1200; J1885; J2765

== ENCOUNTER 2025-01-11 15:01 | Emergency (ER) | payer BC, SELFPAY ==
[2025-01-11 15:06] VITALS: BP 128/93; PULSE 71; RESP 17; TEMP 36.6; O2SAT 98; BMI 34.0
--- NOTE | 2025-01-11 15:25 | CTR_ITS ---
PROCEDURE INFORMATION: Exam: CT Head Without Contrast Exam date and time: 01/11/2025 3:34 PM Age: 54 years old Clinical indication: Pain; Headache; Additional info: HARDY TECHNIQUE: Imaging protocol: Computed tomography of the head without contrast. Axial, coronal and sagittal reformatted images were created and reviewed. Radiation optimization: All CT scans at this facility use at least one of these dose optimization techniques: automated exposure control; mA and/or kV adjustment per patient size (includes targeted exams where dose is matched to clinical indication); or iterative reconstruction. COMPARISON: CT head wo con* [id number] 09/06/2022 1:54 AM RADIATION DOSE METRICS: Total DLP (mGy-cm): 1071.74 FINDINGS: Brain: No CT evidence of acute intracranial hemorrhage or acute territorial infarction. No significant mass effect or midline shift. Basal cisterns patent. Cerebral ventricles: Normal in size and configuration. Paranasal sinuses: Unremarkable. No fluid levels. Mastoid air cells: Grossly unremarkable. Bones: Unremarkable. No acute fracture. Soft tissues: Grossly unremarkable. Vasculature: Calcific atherosclerotic disease in the cavernous internal carotid arteries. CT/CT head wo con* [id number] IMPRESSION: 1. No CT evidence of acute intracranial pathology. 2. Additional findings, as above.
--- NOTE | 2025-01-11 15:30 | ECG_ITS ---
[facility] Test Date: 2025-01-11 Pat Name: Pham Casey Department: Room: Gender: Female Clinical Investigator: : 1970 Requested By: Sunil Higgins Order Number: [id number] Leon MD: Sid Almanzar M.D. Measurements Intervals [place] Rate: 68 P: 39 UT: 176 QRS: -13 QRSD: 90 T: 9 QT: 383 QTc: 407 Interpretive Statements SINUS RHYTHM LOW QRS VOLTAGE IN PRECORDIAL LEADS [QRS DEFLECTION < 1.0 mV IN CHEST LEADS] PATTERN CONSISTENT WITH PULMONARY DISEASE MODERATE VOLTAGE CRITERIA FOR LVH, CONSIDER NORMAL VARIANT [MEETS CRITERIA IN ONE OF: R(aVL), S(V1), R(V5), R(V5/V6)+S(V1)] Compared to ECG 09/06/2022 01:14:45 No significant changes Electronically Signed On 01-11-2025 18:44:20 EPITAXIAL REACTOR TECHNICIAN by Sid Almanzar M.D. [id number]
--- NOTE | 2025-01-11 15:30 | W.ED.HA ---
HPI - Headache General: Chief Complaint: Headache Stated Complaint: severe headache Time Seen by Provider: 01/11/25 15:19 Source: patient Mode of arrival: ambulatory Limitations: no limitations History of Present Illness: 54-year-old female who states she had a urinary tract infection last week has been treated for states for the last 5 days she has been having a headache that waxes and wanes. She states that has been constant but at times is worse and then improves. States her headaches are currently a 5 out of 10 has had migraines in the past has some similarity as she does have photophobia and phonophobia. She had some nausea denies any vomiting. She denies any fevers. She denies this being the worst headache of her life. Related Data Home Medications ?Medication ?Instructions ?Recorded ?Confirmed allopurinol 100 mg tablet 100 mg PO DAILY 01/30/20 01/30/20 diclofenac sodium 75 mg 75 mg PO BID PRN 01/30/20 01/30/20 tablet,delayed release gemfibrozil 600 mg tablet 600 mg PO BID 01/30/20 01/30/20 hydroxyzine HCl 25 mg tablet 25 mg PO QID PRN 01/30/20 01/30/20 levothyroxine 50 mcg capsule 50 mcg PO DAILY 01/30/20 01/30/20 Previous Rx's ?Medication ?Instructions ?Recorded ondansetron 4 mg disintegrating 4 mg PO Q8H #30 tabs 04/04/20 tablet amlodipine 10 mg tablet 10 mg PO DAILY #30 tabs 09/06/22 Allergies Allergy/AdvReac Type Severity Reaction Status Date / Time No Known Allergies Allergy Verified 09/06/22 00:27 Review of Systems Neuro: Reports: headache(s) PFSH ED PFSH: Social History Smoking and tobacco/nicotine status: never used tobacco/nicotine Alcohol intake: never Physical Exam Const: COMMON NORMALS: no acute distress, patient oriented x3 and healthy appearing HENMT: COMMON NORMALS: normocephalic and atraumatic HEAD & SCALP: normocephalic and atraumatic Eye: COMMON NORMALS: Equal, round and reactive pupils present and EOMs intact bilaterally PUPIL: Yes Equal, round and reactive pupils present Neck/C-Spine: COMMON NORMALS: full ROM and supple GENERAL: No Meningeal signs present Chest: COMMONS NORMALS: normal inspection of the chest Resp: COMMON NORMALS: normal respiratory effort Cardio: COMMON NORMALS: regular rate, regular rhythm and No murmurs present (Cardio) RATE: regular rate RHYTHM: regular rhythm Extremity: COMMON NORMALS: normal to inspection and full ROM Neuro: COMMON NORMALS: patient oriented x3, moves all extremities and no focal motor deficits Psych: COMMON NORMALS: mental status grossly normal, Normal thought process present and cooperative THOUGHT PROCESS: Normal thought process present Skin: COMMON NORMALS: no rashes or lesions noted and no wounds GENERAL SKIN EXAM: no rashes or lesions noted Course Vital Signs: Vital signs: Vital Signs Temperature 97.9 F 01/11/25 15:06 Pulse Rate 71 01/11/25 15:06 Respiratory Rate 17 01/11/25 15:06 Blood Pressure 128/93 01/11/25 15:06 Pulse Oximetry 98 01/11/25 15:06 Oxygen Delivery Me thod Room Air 01/11/25 15:06 MDM - Headache Medical Decision Making 54-year-old female presents with headaches been going on for 5 days its waxed and waned differential includes meningitis, cerebral hemorrhage, general headache. She is been well-appearing here lab work shows no significant abnormality white count here is normal. CT here is normal as well she has no signs of subarachnoid hemorrhage this is not the worst headache of her life. This is likely a tension or migraine headache her headache resolved here with Reglan Benadryl and Toradol. She had some palpitations she had stated no chest pain her EKG here was interpreted by me at 1616 showed normal sinus rhythm heart rate [address] elevation QRS 90 QTc 399. She is stable for discharge at this time I did go over all her results with her she is follow-up with PCP return if worsening she understands agrees to plan. Medical Records I reviewed the patient's medical records. Lab Data I reviewed the patient's lab results. 01/11/25 15:46 01/11/25 15:[address] 01/11/25 15:25 IMPRESSION: 1. No CT evidence of acute intracranial pathology. 2. Additional findings, as above. Laboratory Results WBC 6.04 10^3/uL (3.29-11.43) 01/11/25 15:46 RBC 4.66 10^6/uL (3.85-5.65) 01/11/25 15:46 Hgb 14.30 g/dL (11.27-16.99) 01/11/25 15:46 Hct 43.6 % (36-47) 01/11/25 15:46 MCV 93.6 fl (85-98) 01/11/25 15:46 MCH 30.7 pg (27-33) 01/11/25 15:46 MCHC 32.8 g/dL (30-55) 01/11/25 15:46 RDW 14.1 % (12.1-15.1) 01/11/25 15:46 Plt Count 441 10^3/cmm (157-399) H 01/11/25 15:46 MPV 9.9 fL (7.4-10.4) 01/11/25 15:46 Neut % (Auto) 62.4 % 01/11/25 15:46 Lymph % (Auto) 27.3 % 01/11/25 15:46 [place] % (Auto) 6.0 % 01/11/25 15:46 Eos % (Auto) 2.6 % 01/11/25 15:46 Baso % (Auto) 1.0 % 01/11/25 15:46 Neut # (Auto) 3.77 10^3/uL (1.8-7.7) 01/11/25 15:46 Lymph # (Auto) 1.7 10^3/uL (0.8-4.8) 01/11/25 15:46 [place] # (Auto) 0.4 10^3/uL (0.2-0.9) 01/11/25 15:46 Eos # (Auto) 0.2 10^3/uL (0.0-0.8) 01/11/25 15:46 Baso # (Auto) 0.1 10^3/uL (0.0-0.1) 01/11/25 15:46 Nucleated RBC % (auto) 0 % 01/11/25 15:46 Nucleated RBCs # 0.0 /100WBC 01/11/25 15:46 Sodium 135 mmol/L (136-145) L 01/11/25 15:46 Potassium 4.0 mmol/L (3.5-5.1) 01/11/25 15:46 Chloride 100 mmol/L (98-107) 01/11/25 15:46 Carbon Dioxide 20 mmol/L (22-29) L 01/11/25 15:46 Anion Gap 19.0 (5-19) 01/11/25 15:46 BUN 17 mg/dL (6-20) 01/11/25 15:46 Creatinine 0.6 mg/dL (0.5-0.9) 01/11/25 15:46 GFR Calculation 104.6 mL/min (90-130) 01/11/25 15:46 Glucose 128 mg/dL (65-115) H 01/11/25 15:46 Calculated Osmolality 283 mOsm/kg (285-295) L 01/11/25 15:46 Calcium 10.2 mg/dL (8.5-10.5) 01/11/25 15:46 All radiology interpretation(s) finalized by discharge EKG Data EKG 1: I personally reviewed and interpreted this EKG as follows: EKG interpretation date: 01/11/25 EKG interpretation time: 16:16 Interpretation: nsr hr [address] elevation qrs 90 qtc 399 Discharge Plan Discharge Patient Disposition: Home Clinical Impression: Headache Condition: Stable Prescriptions: No Action hydroxyzine HCl 25 mg tablet 25 mg PO QID PRN gemfibrozil 600 mg tablet 600 mg PO BID allopurinol 100 mg tablet 100 mg PO DAILY levothyroxine 50 mcg capsule 50 mcg PO DAILY diclofenac sodium 75 mg tablet,delayed release (DR/EC) 75 mg PO BID PRN ondansetron 4 mg tablet,disintegrating 4 mg PO Q8H Qty: 30 0RF amlodipine 10 mg tablet 10 mg PO DAILY Qty: 30 0RF Discharge Orders: Discharge ED (Routine); Ordered 01/11/25 Ordered By: Sunil Higgins Discharge Diet: Advance as tolerated Discharge Activity: Resume usual activity Patient Instructions: General Headache (ED) Print Language: Azeri Coding Level of Care Code ED [employer] for [facility] [place]
[2025-01-11 15:51] LABS: Hematocrit 43.6 % (36-47); Hemoglobin 14.30 g/dL (11.27-16.99); Mean Corpuscular HGB Conc 32.8 g/dL (30-55); Mean Corpuscular Hemoglobin 30.7 pg (27-33); Mean Corpuscular Volume 93.6 fl (85-98); Nucleated Red Blood Cells % 0 %; Platelet Count 441 10^3/cmm (157-399); Red Blood Count 4.66 10^6/uL (3.85-5.65); White Blood Count 6.04 10^3/uL (3.29-11.43)
[2025-01-11 16:06] LABS: Anion Gap 19.0 (5-19); Blood Urea Nitrogen 17 mg/dL (6-20); Calcium 10.2 mg/dL (8.5-10.5); Carbon Dioxide 20 mmol/L (22-29); Chloride 100 mmol/L (98-107); Glucose 128 mg/dL (65-115); Osmolality Calculated 283 mOsm/kg (285-295); Potassium 4.0 mmol/L (3.5-5.1); Sodium 135 mmol/L (136-145)
[2025-01-11] MEDS: diphenhydrAMINE 50 mg/mL SDV 1mL IVP (16:08)
[2025-01-11] MEDS: metoclopramide 5 mg/mL SDV 2 mL 10 MG IVP (16:08)
[2025-01-11 16:49] VITALS: BP 126/87; PULSE 72; RESP 16; O2SAT 97
== END 2025-01-11 16:48 | disposition home or self-care (01) ==
PROVIDERS: Emergency Provider Emergency Medicine
DX: R51.9 Headache, unspecified (principal)
CPT/HCPCS: 36415; 70450; 80048; 85025; 93005; 96374; 96375; 99285; J1200; J1885; J2765; J7030